=== PATIENT | male | born 1960 | race Caucasian/White ===

== ENCOUNTER 2017-01-08 16:09 | Emergency (ER) | payer OTHER ==
[~2017-01-08] VITALS: Ht 182.9 cm; Wt 82.5 kg
[~2017-01-08 16:09] MED LIST: ATN50T PO; CYCL5TAB11 PO; DOXY100C2 PO; SIMV20TA PO
--- OUTSIDE RECORDS SUMMARY | 2017-01-08 16:14 | XMS REPORT | Continuity of Care Document ---
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 01/28/16 8:10pm Type Living Will 01/28/16 8:10pm Chief Complaint and Reason for Visit Chief Complaint Malaise Reason for Visit Tick bite of foot [id number] Problems Active Problems Medical Problem Onset Date Status Abdominal pain ~12/22/2013 Acute Elevated blood sugar Unknown Acute Post concussion syndrome Unknown Acute Tick bite of foot Unknown Acute Medications Current Home Medications Medication Dose Units Route Directions Days/Qty Instructions Start Date Atenolol (Tenormin) 50 Mg 50 Mg ORAL Daily 12/22/13 Doxycycline Hyclate 100 Mg 100 Mg ORAL Twice A Day 28 01/28/16 Past Home Medications Medication Directions Ordered Status Simvastatin 20 Mg Tablet, 20 Mg Oral Daily 12/22/13 Discontinued Cyclobenzaprine Hcl 5 Mg Tablet, 10 Mg Oral as needed for Muscle Spasms 12/22 Discontinued Social History Query Response Start Date Stop Date Smoking Status Never smoker Hospital Discharge Instructions No hospital discharge instructions. Plan of Care Discharge Date 01/28/16 10:12pm Disposition 01 HOME OR SELF-CARE Instructions/Education Provided Tick Bite (ED) Prescriptions See Medication Section Referrals Carlos Eduardo Roth - Additional Instructions/Education Doxycycline 100 mg twice daily for 2 weeks Eliminate the complex sugars from your diet - follow a diabetic diet Follow up with your primary provider next week for follow up regarding your blood sugar and your anemia Return if symptoms worsen Some of your test results may not be complete prior to your leaving the Emergency Department. The Emergency Department is not authorized to give test results over the phone. Please contact the doctor's office listed in this packet of information for your final results. Follow up with your primary care physician or return to the Emergency Department for worsening or worrisome symptoms. * Emergency Department phone number: [phone], x [phone]* MEDICAL RECORD If you need copies of your X-rays, call [phone]. If you need copies of your medical record, including lab results, a signed authorization for release of records will be required. A telephone call for release of Health Information is not allowed. BILLING Billing can sometimes be confusing and frustrating. To help avoid confusion in the future, please take a moment to acquaint yourself with the billing parties for services. SERVICE BILLING [employer]AT Emergency Room Services [facility] Physician Services [facility] X-rays [facility] Patients will receive bills for services from the appropriate provider. If you have any questions about your [facility] bill, our staff will be happy to assist you. Please call [phone], and ask for the billing department. THANK YOU for choosing [facility] as your emergency care provider! Care Plan and Goals ~~Discharge Care Plan~~ Problem: Weakness, not feeling well, discomfort. Goal: Decreased weakness, discomfort, and patient feels better. Instructions: Drink plenty of fluids at least 6-8 glasses of water or other non carbonated drink. Get plenty of rest. Eat a balanced and healthy diet. Take medication(s) as directed. Follow up with primary care physician as directed. Functional Status No functional status results. Allergies, Adverse Reactions, Alerts No known allergies. Immunizations No immunization records. Vital Signs Acute Vital Signs Vital Response Date/Time Temperature (Fahrenheit) 97.5 01/28/2016 10:12pm Pulse 108 bpm 01/28/2016 10:12pm Respirations 20 01/28/2016 10:12pm Height 6 ft 0 in Weight 185 lb Body Mass Index 25.0 kg/m^2 Results Laboratory Results Test Name Result Units Flags Reference Collection Date/Time Result Date/ Time Comments White Blood Count 9.61 10^3uL 4.0-11.0 01/28/2016 8:49pm 01/28/2016 9: 03pm Red Blood Count 4.40 10^6uL L 4.50-5.50 01/28/2016 8:49pm 01/28/2016 9: 03pm Hemoglobin 12.8 g/dL L 13.5-17.0 01/28/2016 8:49pm 01/28/2016 9:03pm Hematocrit 38.30 % L 39.00-50.00 01/28/2016 8:49pm 01/28/2016 9:03pm Mean Corpuscular Volume 87 FL 80-100 01/28/2016 8:49pm 01/28/2016 9: 03pm Mean Corpuscular Hemoglobin 29.1 PG 26.0-34.0 01/28/2016 8:49pm 2015 9:03pm Mean Corpuscular Hemoglobin Concent 33.4 g/dL 31.0-37.0 01/28/2016 8: 49pm 01/28/2016 9:03pm Red Cell Distribution Width 12.5 % 11.8-15.6 01/28/2016 8:49pm 2015 9:03pm Platelet Count 257 10^3uL 150-450 01/28/2016 8:49pm 01/28/2016 9:03pm Mean Platelet Volume 8.7 FL 6.0-9.5 01/28/2016 8:49pm 01/28/2016 9: 03pm Neutrophils (%) (Auto) 75 % H 51-67 01/28/2016 8:49pm 01/28/2016 9:03pm Lymphocytes (%) (Auto) 17 % L 20-46 01/28/2016 8:49pm 01/28/2016 9:03pm Monocytes (%) (Auto) 6 % 3-11 01/28/2016 8:49pm 01/28/2016 9:03pm Eosinophils (%) (Auto) 3 % 0-4 01/28/2016 8:49pm 01/28/2016 9:03pm Basophils (%) (Auto) 0 % 0-2 01/28/2016 8:49pm 01/28/2016 9:03pm Neutrophils # (Auto) 7.2 X10^3 01/28/2016 8:49pm 01/28/2016 9:03pm Lymphocytes # (Auto) 1.6 X10^3 01/28/2016 8:49pm 01/28/2016 9:03pm Monocytes # (Auto) 0.6 X10^3 01/28/2016 8:49pm 01/28/2016 9:03pm Eosinophils # (Auto) 0.2 10^3uL 01/28/2016 8:49pm 01/28/2016 9:03pm Basophils # (Auto) 0.0 10^3uL 01/28/2016 8:49pm 01/28/2016 9:03pm Volume Urine Centrifuged 12 mL 01/28/2016 9:01pm 01/28/2016 9:33pm Urine Collection Type CLEAN CATCH 01/28/2016 9:01pm 01/28/2016 9: 33pm Urine Color Yellow 01/28/2016 9:01pm 01/28/2016 9:30pm Urine Clarity Slightly Cloudy 01/28/2016 9:01pm 01/28/2016 9:30pm Urine pH 6.0 5.0 - 8.0 01/28/2016 9:01pm 01/28/2016 9:30pm Urine Specific [place] <=1.005 1.005-1.030 01/28/2016 9:01pm 2015 9:30pm Urine Protein Negative Negative 01/28/2016 9:01pm 01/28/2016 9:30pm Urine Glucose (UA) Trace H Negative 01/28/2016 9:01pm 01/28/2016 9: 30pm Urine RBC (Auto) Trace-intact H Negative 01/28/2016 9:01pm 01/28/2016 9:30pm Urine Ketones Negative Negative 01/28/2016 9:01pm 01/28/2016 9:30pm Urine Nitrite Negative Negative 01/28/2016 9:01pm 01/28/2016 9:30pm Urine Bilirubin Negative Negative 01/28/2016 9:01pm 01/28/2016 9: 30pm Urine Urobilinogen 0.2 mg/dL 0.2-1.0 01/28/2016 9:01pm 01/28/2016 9: 30pm Urine Leukocyte Esterase Negative Negative 01/28/2016 9:01pm 2015 9:30pm Urine RBC 0-2 /HPF 01/28/2016 9:01pm 01/28/2016 9:33pm Urine WBC 0-2 /HPF 01/28/2016 9:01pm 01/28/2016 9:33pm Urine Bacteria None Seen /HPF 01/28/2016 9:01pm 01/28/2016 9:33pm Urine Squamous Epithelial Cells 0-2 /LPF 01/28/2016 9:01pm 2015 9:33pm Sodium Level 138 mmol/L 135-150 01/28/2016 8:49pm 01/28/2016 9:07pm Potassium Level 4.0 mmol/L 3.5-5.1 01/28/2016 8:49pm 01/28/2016 9:07pm Chloride Level 102 mmol/L 98-108 01/28/2016 8:49pm 01/28/2016 9:07pm Carbon Dioxide Level 29 mmol/L 22-29 01/28/2016 8:49pm 01/28/2016 9: 07pm Anion Gap 10.4 MEQ/L 3-15 01/28/2016 8:49pm 01/28/2016 9:07pm Blood Urea Nitrogen 9 mg/dL 7-18 01/28/2016 8:49pm 01/28/2016 9:07pm Creatinine 1.07 mg/dL 0.8-1.5 01/28/2016 8:49pm 01/28/2016 9:07pm BUN/Creatinine Ratio 8 L 10-20 01/28/2016 8:49pm 01/28/2016 9:07pm Estimat Glomerular Filtration Rate 86.5 01/28/2016 8:49pm 2015 9:07pm Estimated GFR (Non- 71.5 01/28/2016 8:49pm 2015 9:07pm Glucose Level 218 mg/dL # H 70-110 01/28/2016 8:49pm 01/28/2016 9:07pm Calculated Osmolality 272 mosm/L L 280-300 01/28/2016 8:49pm 01/28/2016 9:07pm Calcium Level 9.6 mg/dL 8.8-10.8 01/28/2016 8:49pm 01/28/2016 9:07pm Calcium/Ionized Calcium Ratio 4.4 mg/dL 3.8-4.6 01/28/2016 8:49pm 01/27 9:07pm Total Bilirubin 0.4 mg/dL 0.1-1.0 01/28/2016 8:49pm 01/28/2016 9:07pm Alkaline Phosphatase 53 U/L 38-126 01/28/2016 8:49pm 01/28/2016 9:07pm Aspartate Amino Transf (AST/SGOT) 31 U/L 15-37 01/28/2016 8:49pm 2015 9:07pm Alanine Aminotransferase (ALT/SGPT) 28 U/L L 30-65 01/28/2016 8:49pm 9:07pm Total Protein 6.7 g/dL 6.4-8.5 01/28/2016 8:49pm 01/28/2016 9:07pm Albumin 3.9 g/dL 3.4-5.0 01/28/2016 8:49pm 01/28/2016 9:07pm Albumin/Globulin Ratio 1.392 1.1-1.8 01/28/2016 8:49pm 01/28/2016 9: 07pm Procedures No known history of procedures. Encounters Encounter Location Arrival/Admit Date Discharge/Depart Date Attending Provider Departed Emergency Room [facility] 01/28/16 7:55pm 01/28/16 10:12pm AKBAR GORMAN MD Recent Diagnosis
[2017-01-08] MEDS ORDERED: AMLO10TA5 PO (16:32)
[2017-01-08] MEDS ORDERED: HYDROmorphone 1 MG/ML (DILAUDID) SYRINGE IV ONE (16:50)
[2017-01-08] MEDS ORDERED: ONDANSETRON 4 MG (ZOFRAN) ORAL DISSOLVE TAB PO ONE (16:50)
[2017-01-08] MEDS ORDERED: HYDROmorphone 1 MG/ML (DILAUDID) SYRINGE IM ONE (17:00)
--- NOTE | 2017-01-08 17:08 | NUR ---
IM DILAUDID ADMIN WAS ORIGINALLY SCANNED ON THE INCORRECT IV MAR - THIS WAS UNDONE. MED CHARTED ON CORRECT IM MAR BUT DID NOT HAVE DILAUDID TUBEX TO SCAN (TUBEX DISCARDED AFTER ORIGINAL CHARTING).
[2017-01-08] MEDS ORDERED: OXYC1TAB8 PO (17:48)
[2017-01-08] MEDS ORDERED: CYCL10TA45 PO (17:48)
[2017-01-08] MEDS ORDERED: ZLP10T PO (17:48)
[2017-01-08] MEDS ORDERED: OXYC15TA79 PO (17:48)
[2017-01-08 19:08] VITALS: BP 127/89
== END 2017-01-08 19:09 | disposition home or self-care (01) ==
LOC: ED 16:10
DX: S00.83XA Contusion of other part of head, initial encounter (principal); H53.2 Diplopia; W22.09XA Striking against other stationary object, initial encounter; Y93.89 Activity, other specified; Y92.520 Airport as the place of occurrence of the external cause; Y99.0 Civilian activity done for income or pay
CPT/HCPCS: 96372; 99282; J1170